=== PATIENT | male | born 1990 | race Caucasian/White ===

== ENCOUNTER → 2019-07-22 08:12 | Outpatient (CLI) | payer OTHER, SELFPAY ==
[2019-07-22 08:57] LABS: Hematocrit 48.4 % (41-53); Hemoglobin 16.6 g/dL (13.5-17.5); Mean Corpuscular HGB Conc 34.3 % (30-36); Mean Corpuscular Hemoglobin 28.1 PG (26-34); Platelet Count 266 X10^3/uL (150-400); Red Cell Distribution Width 13.1 % (11.6-14.8); White Blood Cell Count 6.6 X10^3/uL (4.5-11.0)
[2019-07-22 09:10] LABS: Alanine Aminotransferase 26 IU/L (<50); Albumin 4.9 g/dL (3.5-5.0); Albumin Globulin Ratio 1.7 (1.0-2.8); Alkaline Phosphatase 55 U/L (38-126); Aspartate Aminotransferase 24 IU/L (17-59); BUN Creatinine Ratio 14.4 (6-22); Bilirubin Total 0.6 mg/dL (0.2-1.3); Blood Urea Nitrogen 13 mg/dL (9-20); Calcium 9.7 mg/dL (8.4-10.2); Carbon Dioxide 26 mmol/L (22-32); Chloride 105 mmol/L (98-107); Cholesterol 164 mg/dL (140-199); Estimated Glomerular Filt Rate > 60.0 mL/min (>60); Globulin 2.9 g/dL (1.7-4.1); Glucose 92 mg/dL (70-100); HDL Cholesterol 42 mg/dL (40-60); HEMOLYSIS < 15 (0-50); LDL Cholesterol Calculated 104 mg/dL (<100); Potassium 4.7 mmol/L (3.4-5.1); Sodium 141 mmol/L (137-145); Total Protein 7.8 g/dL (6.3-8.2); Triglycerides 88 mg/dL (35-150)
== END ==
PROVIDERS: PCP Nurse Practitioner Family; Visit Provider Nurse Practitioner Family
DX: Z00.00 Encounter for general adult medical examination without abnormal findings (principal); Z13.6 Encounter for screening for cardiovascular disorders
CPT/HCPCS: 36415; 80053; 80061; 85027

== ENCOUNTER 2019-07-27 15:17 | Emergency (ER) | payer OTHER, SELFPAY ==
[2019-07-27 15:24] VITALS: BP 129/82; PULSE 107; RESP 24; TEMP 36.3; O2SAT 93; BMI 35.1
[2019-07-27] MEDS: ALBUTEROL/IPRATROPIUM 3 ML AMPUL INH (15:42)
[2019-07-27 15:43] VITALS: PULSE 103; RESP 16; O2SAT 93
--- NOTE | 2019-07-27 15:58 | DI.RAD.S_ITS ---
PROCEDURE: XR CHEST 2V INDICATIONS: shortness of breath with coughing TECHNIQUE: 2 views of the chest were acquired. COMPARISON: [facility], , CHEST 1 VIEW, 07/08/2016, 11:52. FINDINGS: Surgical changes and devices: None. Lungs and pleura: Lungs are clear. No pleural effusions or pneumothorax. Mediastinum: Mediastinal contours are normal. Heart size is normal. Bones and chest wall: No suspicious bony abnormalities. Soft tissues appear unremarkable. IMPRESSION: No acute cardiopulmonary process is evident. Dictated by: Lauri Mattson M.D. on 07/27/2019 at 15:55 Approved by: Lauri Mattson M.D. on 07/27/2019 at 15:55
[2019-07-27 16:00] VITALS: PULSE 119; RESP 20; O2SAT 94
--- NOTE | 2019-07-27 16:01 | PC.NURSE ---
after albuterol nebulizer tx. pt still short of breath, breath sound inp/exp wheeze, noted dry coughing skin warm dry pink.
[2019-07-27] MEDS: LEVALBUTEROL 1.25 MG/0.5 ML NEB INH ×2 (16:07→16:30)
[2019-07-27 16:08] VITALS: PULSE 115; RESP 16; O2SAT 93
[2019-07-27 16:30] VITALS: PULSE 114; RESP 16; O2SAT 93
[2019-07-27 17:12] VITALS: BP 131/76; PULSE 101; RESP 22; O2SAT 98
[2019-07-27] MEDS: dexAMETHasone 20 MG in SODIUM CHLORIDE 0.9% 50 ML 208 ML IV (17:16)
--- NOTE | 2019-07-27 17:21 | ED.ASTHMA ---
HPI - Asthma General Chief Complaint: Asthma Stated Complaint: states asthma attack Time Seen by Provider: 07/27/19 15:53 Source: patient Mode of arrival: Ambulatory Limitations: no limitations History of Present Illness HPI Narrative: Patient comes emergency department complaining of an exacerbation of his asthma that started today. Patient states he has been stuck at his place of employment for the last 4 days, due to the snow. He states he did not have his asthma meds with him, other than his albuterol inhaler. He states he took 6 puffs of that prior to coming in and did not seem to help. Patient also states that he has had some degree of allergies, but no recent upper respiratory infection. Patient denies fevers or chills. No chest pain. No nausea vomiting. No abdominal pain. No other complaints at this time. Related Data Home Medications Medication Instructions Recorded Confirmed fluticasone propionate 2 spray INTRANASAL BID #0 07/08/16 05/30/19 fexofenadine 60 mg tablet 60 mg PO BID 10/02/18 05/30/19 Previous Rx's Medication Instructions Recorded albuterol sulfate 90 mcg/actuation 2 puff INHALATION Q4-6H PRN #8.5 05/30/19 aerosol inhaler gram fluticasone 250 mcg-salmeterol 50 1 inhalation INHALATION BID #60 05/30/19 mcg/dose blistr powdr for each inhalation montelukast 10 mg tablet 10 mg PO DAILY #90 tab 05/30/19 albuterol sulfate 2 puff INHALATION Q4-6H PRN #8.5 07/27/19 gram fluticasone propion-salmeterol 1 inhalation INHALATION Q12H #60 07/27/19 [Advair Diskus] each prednisone 60 mg PO DAILY #15 tab 07/27/19 Allergies Allergy/AdvReac Type Severity Reaction Status Date / Time NSAIDS (Non-Steroidal Allergy Severe Throat Verified 07/27/19 15:26 Anti-Inflamma Closure [NSAIDS (NON-STEROIDAL ANTI-INFLAMMA] Review of Systems Constitutional Constitutional: Denies chills, Denies fatigue, Denies fever(s), Denies frequent falls, Denies lethargy and Denies weakness Eyes Eyes: Denies change in vision, Denies eye discharge, Denies irritation and Denies loss of vision ENT Ears, Nose, Mouth, and Throat: Denies change in voice, Denies dizziness, Denies neck pain, Denies sore throat and Denies throat swelling Cardiovascular Cardiovascular: Denies chest pain, Denies irregular heart rhythm, Denies lightheadedness, Denies palpitations, Reports dyspnea and Denies orthopnea Respiratory Respiratory: Denies cough, Reports dyspnea and Reports wheezing Gastrointestinal Gastrointestinal: Denies abdominal pain, Denies change in bowel habits, Denies diarrhea, Denies nausea and Denies vomiting Genitourinary Genitourinary: Denies hematuria, Denies flank pain, Denies urinary incontinence and Denies urinary urgency Musculoskeletal Musculoskeletal: Denies back pain, Denies muscle weakness, Denies neck pain, Denies numbness and Denies tingling Integumentary/Breasts Skin/Breast: Denies pruritus, Denies erythema, Denies rash and Denies wounds Neurologic Neurologic: Denies behavioral changes, Denies confusion, Denies dizziness, Denies frequent falls, Denies loss of vision, Denies numbness, Denies tingling and Denies weakness Psychiatric Psychiatric: Denies anxiety, Denies behavioral changes, Denies confusion, Denies depression, Denies homicidal ideation and Denies suicidal ideation Endocrine Endocrine: Denies fatigue, Denies flushing and Denies palpitations Hematologic/Lymphatic Hematologic/Lymphatic: Denies easy bruising Allergic/Immunologic Allergic/Immunologic: Denies urticaria, Denies throat swelling and Reports wheezing Patient History Medical History Moderate persistent asthma (Acute 2017) Social History Smoking Status: Former smoker Smokeless tobacco user: chewing tobacco second hand exposure: No alcohol intake: current (Very rarely) substance use type: does not use Smoking Status: Former smoker alcohol intake frequency: holidays/special occasions only Substance Use Type: does not use Exam Initial Vital Signs Initial Vital Signs: Vital Signs Temperature 97.4 F L 07/27/19 15:24 Pulse Rate 107 H 07/27/19 15:24 Respiratory Rate 24 07/27/19 15:24 Blood Pressure 129/82 07/27/19 15:24 Pulse Oximetry 93 07/27/19 15:24 Const General: cooperative and well developed Nutritional Appearance: well nourished [facility] Head: normocephalic and atraumatic Ears: external ears normal and TM's normal bilaterally Nose: external nose normal and No nasal discharge Face and sinus: sinuses nontender, face symmetric, no sinus tenderness and No dry mucous membranes Mouth: oral mucosae normal and moist mucous membranes Teeth and gingiva: dentition normal Throat: tonsils normal and uvula midline Eyes General: appearance normal, both eyes and all related structures Eyelids: eyelids normal Conjunctivae: conjunctivae normal Sclera: sclerae normal Pupils: PERRL EOM: EOM intact bilaterally Neck Neck: normal visual inspection, trachea midline, No lymphadenopathy, No midline deformity and No JVD Lymphatic: No lymphedema Chest Chest: normal inspection of the chest Resp Effort & Inspection: labored, respiratory distress (Moderate), no use of accessory muscles and prolonged expiratory phase Auscultation: clear to auscultation bilaterally, diminished lung sounds bilaterally throughout, no rales, no rhonchi and wheezes Cardio Rate: regular rate Rhythm: regular rhythm Heart Sounds: no click, no gallops, no murmurs and no rubs Pulses: normal peripheral pulses GI Inspection: non-distended Palpation: soft, no hepatosplenomegaly, No guarding, No pulsatile mass and No tender Auscultation: normal bowel sounds Back/Spine/Pelvis Back: No CVA tenderness Cervical Spine: cervical ROM normal and No pain with cervical ROM Thoracic/Lumbar Spine: thoracic and lumbar spine normal to inspection Skin General: no rashes or lesions noted, No jaundice and No petechiae Neuro General: alert, oriented x3, gait normal and no focal motor deficits Speech: speech normal Extrem General: full ROM, no clubbing, cyanosis or edema, no pedal edema and no calf tenderness Psych Appearance: well kempt Mental Status: mental status grossly normal Attitude: cooperative Thought Content: normal and suicidality Judgment: judgment good Course Course Course Narrative: Patient was given a DuoNeb, plus to Xopenex nebulizer treatments and 20 mg of Decadron IV. After this, the patient was found to be feeling much better and had clear lung sounds with good air movement bilaterally. I felt he was stable for discharge home. I've given a prescription for prednisone, and he has asked me to refill his Advair Diskus and his albuterol inhaler, which I've done. Orders Ordered: ED Orders 07/27/19 15:26 RT Consult Eval and Treat NOW 07/27/19 15:58 CXR [XR chest 2V] Stat 07/27/19 16:46 EKG-12 Lead Stat 07/27/19 17:00 Complete Blood Count AUTO DIFF Stat Comprehensive Metabolic Panel Stat Lactate (Lactic Acid) Stat Discontinued Medications Albuterol/Ipratropium (Duoneb) 3 ml INH NOW ONE Stop: 07/27/19 15:43 Last Admin: 07/27/19 15:42 Dose: 3 ml Documented by: ORESTES Dexamethasone 20 mg/ Sodium (Chloride) 52 mls @ 208 mls/hr IV NOW ONE Stop: 07/27/19 16:53 Last Infusion: 07/27/19 17:41 Dose: 0 mls/hr Documented by: Admin: 07/27/19 17:16 Dose: 208 mls/hr Documented by: MARC Levalbuterol HCl (Xopenex) 1.25 mg INH NOW ONE Stop: 07/27/19 16:06 Last Admin: 07/27/19 16:07 Dose: 1.25 mg Documented by: ORESTES Levalbuterol HCl (Xopenex) 1.25 mg INH NOW ONE Stop: 07/27/19 16:30 Last Admin: 07/27/19 16:30 Dose: 1.25 mg Documented by: ORESTES Vital Signs Vital signs: Vital Signs - 8 hr 07/27/19 15:24 07/27/19 15:43 07/27/19 16:00 Temperature 97.4 F L Pulse Rate 107 H 103 H 119 H Respiratory Rate 24 16 20 Blood Pressure 129/82 Blood Pressure [Left Arm] Pulse Oximetry 93 93 94 07/27/19 16:08 07/27/19 16:30 07/27/19 17:12 Temperature Pulse Rate 115 H 114 H 101 H Respiratory Rate 16 16 22 Blood Pressure Blood Pressure [Left Arm] 131/76 Pulse Oximetry 93 93 98 MDM - Asthma Medical Records Attestation: I reviewed the patient's medical records. Lab Data Attestation: I reviewed the patient's lab results. Result diagrams: 07/27/19 17:00 07/27/19 17:00 Labs: Lab Results 07/27/19 07/27/19 07/27/19 Range/Units 17:00 17:00 17:00 WBC 16.1 H (4.5-11.0) X10^3/uL RBC 5.75 (4.5-5.9) X10^6/uL Hgb 16.0 (13.5-17.5) g/dL Hct 47.1 (41-53) % MCV 81.9 (80-100) fL MCH 27.8 (26-34) PG MCHC 34.0 (30-36) % RDW 12.8 (11.6-14.8) % Plt Count 243 (150-400) X10^3/uL Neut % (Auto) 70.9 (50-75) % Lymph % (Auto) 16.5 L (25-40) % [place] % (Auto) 3.5 (3-14) % Eos % (Auto) 8.7 H (2-4) % Baso % (Auto) 0.4 (0-2) % Neut # (Auto) 86508 H (1771-8402) /uL Lymph # (Auto) 2700 (7455-2552) /uL [place] # (Auto) 600 (0-900) /uL Eos # (Auto) 1400 H (0-450) /uL Baso # (Auto) 100 (0-100) /uL Sodium 142 (137-145) mmol/L Potassium 3.8 (3.4-5.1) mmol/L Chloride 104 (98-107) mmol/L Carbon Dioxide 27 (22-32) mmol/L BUN 17 (9-20) mg/dL Creatinine 0.80 (0.66-1.25) mg/dL Estimated GFR > 60.0 (>60) mL/min BUN/Creatinine Ratio 21.3 (6-22) Glucose 102 H (70-100) mg/dL Lactate 1.5 (0.7-2.1) mmol/L Calcium 10.2 (8.4-10.2) mg/dL Total Bilirubin 0.4 (0.2-1.3) mg/dL AST 25 (17-59) IU/L ALT 23 (<50) IU/L Alkaline Phosphatase 72 (38-126) U/L Total Protein 8.0 (6.3-8.2) g/dL Albumin 4.9 (3.5-5.0) g/dL Globulin 3.1 (1.7-4.1) g/dL Albumin/Globulin Ratio 1.6 (1.0-2.8) Imaging Data Chest x-ray: Radiologist's Impression: PROCEDURE: XR CHEST 2V INDICATIONS: shortness of breath with coughing TECHNIQUE: 2 views of the chest were acquired. COMPARISON: [facility], CHEST 1 VIEW, 07/08/2016, 11:52. FINDINGS: Surgical changes and devices: None. Lungs and pleura: Lungs are clear. No pleural effusions or pneumothorax. Mediastinum: Mediastinal contours are normal. Heart size is normal. Bones and chest wall: No suspicious bony abnormalities. Soft tissues appear unremarkable. IMPRESSION: No acute cardiopulmonary process is evident. Dictated by: Lauri Mattson M.D. on 07/27/2019 at 15:55 Approved by: Lauri Mattson M.D. on 07/27/2019 at 15:55 Discharge Plan Departure Patient Disposition: Home Clinical Impression: Exacerbation of asthma Qualifiers: Asthma severity: mild Asthma persistence: intermittent Qualified Code(s): J45.21 - Mild intermittent asthma with (acute) exacerbation Discharge Date/Time: 07/27/19 17:45 Instructions: DI for Asthma -- Adult Activity Restrictions/Additional Instructions: Your prescriptions have been electronically transmitted to the [facility] in [place]. Prescriptions: New albuterol sulfate 90 mcg/actuation HFA aerosol inhaler 2 puff INHALATION Q4-6H PRN (Reason: shortness of breath or wheezing) Qty: 8.5 RF: 0 fluticasone propion-salmeterol [Advair Diskus] 250-50 mcg/dose blister with device 1 inhalation INHALATION Q12H Qty: 60 RF: 0 prednisone 20 mg tablet 60 mg PO DAILY Qty: 15 RF: 0 No Action fexofenadine [[place] Allergy] 60 mg tablet 60 mg PO BID RF: 0 fluticasone propionate 16 GM spray,suspension 2 spray Intranasal BID Qty: 0 RF: 0 montelukast [Singulair] 10 mg tablet 10 mg PO DAILY Qty: 90 RF: 0 albuterol sulfate [ProAir HFA] 90 mcg/actuation HFA aerosol inhaler 2 puff INHALATION Q4-6H PRN (Reason: shortness of breath or wheezing) Qty: 8.5 RF: 4 fluticasone propion-salmeterol [Advair Diskus] 250-50 mcg/dose blister with device 1 inhalation INHALATION BID Qty: 60 RF: 11 Referrals: Kavon España ARNP [Primary Care Provider] -
[2019-07-27 17:25] LABS: Add Manual Diff / Slide Review NO; Basophils Absolute Auto 100 /uL (0-100); Basophils Percent Auto 0.4 % (0-2); Eosinophils Absolute Auto 1400 /uL (0-450); Eosinophils Percent Auto 8.7 % (2-4); Hematocrit 47.1 % (41-53); Lymphocytes Absolute Auto 2700 /uL (1100-4500); Lymphocytes Percent Auto 16.5 % (25-40); Mean Corpuscular Hemoglobin 27.8 PG (26-34); Mean Corpuscular Volume 81.9 fL (80-100); Monocytes Absolute Auto 600 /uL (0-900); Monocytes Percent Auto 3.5 % (3-14); Neutrophils Absolute Auto 11400 /uL (1500-7000); Neutrophils Percent Auto 70.9 % (50-75); Platelet Count 243 X10^3/uL (150-400); Red Blood Cell Count 5.75 X10^6/uL (4.5-5.9); Red Cell Distribution Width 12.8 % (11.6-14.8); White Blood Cell Count 16.1 X10^3/uL (4.5-11.0)
[2019-07-27 17:32] LABS: Alanine Aminotransferase 23 IU/L (<50); Albumin 4.9 g/dL (3.5-5.0); Albumin Globulin Ratio 1.6 (1.0-2.8); Alkaline Phosphatase 72 U/L (38-126); Aspartate Aminotransferase 25 IU/L (17-59); BUN Creatinine Ratio 21.3 (6-22); Bilirubin Total 0.4 mg/dL (0.2-1.3); Blood Urea Nitrogen 17 mg/dL (9-20); Calcium 10.2 mg/dL (8.4-10.2); Carbon Dioxide 27 mmol/L (22-32); Chloride 104 mmol/L (98-107); Estimated Glomerular Filt Rate > 60.0 mL/min (>60); Globulin 3.1 g/dL (1.7-4.1); Glucose 102 mg/dL (70-100); HEMOLYSIS 17 (0-50); Lactate (Lactic Acid) 1.5 mmol/L (0.7-2.1); Potassium 3.8 mmol/L (3.4-5.1); Sodium 142 mmol/L (137-145)
== END 2019-07-27 17:45 | disposition home or self-care (01) ==
PROVIDERS: Emergency Provider Emergency Medicine; Family Provider Nurse Practitioner Family; PCP Nurse Practitioner Family
DX: J45.21 Mild intermittent asthma with (acute) exacerbation (principal)
CPT/HCPCS: 36415; 71046; 80053; 83605; 85025; 93005; 94150; 94640; 96365; 99284; 99285; J1100; J7614

== ENCOUNTER → 2020-05-24 11:24 | Outpatient (CLI) | payer OTHER, SELFPAY ==
[2020-05-24 12:23] LABS: Liquefaction Semen YES (YES); PH Semen 9 (7-8); Sperm Count 36 x10^6/mL (20-150); Sperm Morphology 43 %ABNORM (0-30); Sperm Motility 30% % Motile; Volume Semen 2.1 (1.0-5.0)
== END ==
PROVIDERS: Family Provider Nurse Practitioner Family; PCP Nurse Practitioner Family; Referring Provider Obstetrics & Gynecology; Visit Provider Obstetrics & Gynecology
DX: Z31.69 Encounter for other general counseling and advice on procreation (principal)
CPT/HCPCS: 89320

== ENCOUNTER → 2021-01-07 15:34 | Outpatient (CLI) | payer OTHER, SELFPAY ==
[2021-01-07 16:56] LABS: Hematocrit 43.8 % (41-53); Hemoglobin 14.4 g/dL (13.5-17.5); Mean Corpuscular HGB Conc 32.9 % (30-36); Mean Corpuscular Hemoglobin 27.4 PG (26-34); Mean Corpuscular Volume 83.4 fL (80-100); Platelet Count 235 X10^3/uL (150-400); Red Blood Cell Count 5.25 X10^6/uL (4.5-5.9); Red Cell Distribution Width 13.2 % (11.6-14.8); White Blood Cell Count 11.5 X10^3/uL (4.5-11.0)
[2021-01-07 17:21] LABS: Alanine Aminotransferase 35 IU/L (<50); Albumin 4.6 g/dL (3.5-5.0); Albumin Globulin Ratio 1.6 (1.0-2.8); Alkaline Phosphatase 55 U/L (38-126); Aspartate Aminotransferase 30 IU/L (17-59); BUN Creatinine Ratio 16.1 (6-22); Bilirubin Total 0.5 mg/dL (0.2-1.3); Blood Urea Nitrogen 15 mg/dL (9-20); Calcium 9.9 mg/dL (8.4-10.2); Carbon Dioxide 24 mmol/L (22-32); Chloride 104 mmol/L (98-107); Estimated Glomerular Filt Rate > 60.0 mL/min (>60); Globulin 2.8 g/dL (1.7-4.1); Glucose 91 mg/dL (70-100); HEMOLYSIS < 15 (0-50); Potassium 3.9 mmol/L (3.4-5.1); Sodium 140 mmol/L (137-145); Total Protein 7.4 g/dL (6.3-8.2)
== END ==
PROVIDERS: Family Provider Nurse Practitioner Family; PCP Nurse Practitioner Family; Referring Provider Nurse Practitioner Family; Visit Provider Nurse Practitioner Family
DX: Z00.00 Encounter for general adult medical examination without abnormal findings (principal); J45.901 Unspecified asthma with (acute) exacerbation
CPT/HCPCS: 36415; 80053; 85027